=== PATIENT | male | born 1950 | race Hispanic/Latino ===

== ENCOUNTER → 2020-10-23 | Day surgery (SDC) | payer MEDICARE ==
[2020-10-21 14:19] VITALS: BMI 25.1
[~2020-10-23] MED LIST: Lidocaine 1% MPF 2 ML VIAL ONE; Lidocaine 1% PF 5 ML VIAL ONE; PROPOFOL 40 ML ONE
== END ==
LOC: CSHSDC 09:54
PROVIDERS: ATTEND Internal Medicine Gastroenterology
PROC: 0DBP8ZZ Excision of Rectum, Via Natural or Artificial Opening Endoscopic (ICD-10-PCS; principal; 2020-10-23)
DX: Z12.11 Encounter for screening for malignant neoplasm of colon (principal); D12.8 Benign neoplasm of rectum; K57.30 Diverticulosis of large intestine without perforation or abscess without bleeding; K64.9 Unspecified hemorrhoids; E78.5 Hyperlipidemia, unspecified
CPT/HCPCS: 88305; J2704